=== PATIENT | female | born 1980 | race Caucasian/White ===

== ENCOUNTER 2021-10-26 16:48 | Emergency (ER) | payer OTHER ==
[~2021-10-26] VITALS: Ht 175.3 cm; Wt 89.1 kg
[2021-10-26] MEDS ORDERED: AMOX-580 PO (18:38)
[2021-10-26] MEDS ORDERED: HYDR-3972 PO (18:38)
[2021-10-26 19:13] VITALS: BP 117/81
== END 2021-10-26 19:16 | disposition home or self-care (01) ==
LOC: ER 16:48
DX: K08.89 Other specified disorders of teeth and supporting structures (principal); H92.02 Otalgia, left ear; Z79.2 Long term (current) use of antibiotics; Z79.899 Other long term (current) drug therapy
CPT/HCPCS: 99283

== ENCOUNTER 2022-03-10 04:41 | Emergency (ER) | payer OTHER ==
[~2022-03-10] VITALS: Ht 175.3 cm; Wt 81.8 kg
[2022-03-10 04:45] VITALS: BP 137/79
[2022-03-10] MEDS ORDERED: AMOX-117 PO (06:24)
[2022-03-10] MEDS ORDERED: HYDR-3965 PO (06:24)
[2022-03-10] MEDS ORDERED: HYDROcodone/acetaminophen 5mg/325mg tablet PO ONE (06:25)
== END 2022-03-10 06:35 | disposition home or self-care (01) ==
LOC: ER 04:41
DX: K08.89 Other specified disorders of teeth and supporting structures (principal); R51.9 Headache, unspecified
CPT/HCPCS: 99283

== ENCOUNTER 2023-02-01 16:53 | Emergency (ER) | payer OTHER ==
[~2023-02-01] VITALS: Ht 175.3 cm; Wt 102.8 kg
[2023-02-01 17:00] VITALS: BP 127/80
[2023-02-01] MEDS ORDERED: HYDR-3972 PO (17:57)
[2023-02-01] MEDS ORDERED: AMOX500C2 PO (17:57)
== END 2023-02-01 18:04 | disposition home or self-care (01) ==
LOC: ER 16:54
DX: K04.7 Periapical abscess without sinus (principal); R60.9 Edema, unspecified
CPT/HCPCS: 99283

== ENCOUNTER 2024-10-29 16:48 | Emergency (ER) | payer OTHER ==
[~2024-10-29] VITALS: Ht 177.8 cm; Wt 84.0 kg
[2024-10-29 16:56] VITALS: BP 123/64; PULSE 87; TEMP 99.2; O2SAT 98
[2024-10-29] MEDS ORDERED: AMOX-117 PO (18:08)
[2024-10-29 18:14] VITALS: RESP 18
[2024-10-29] MEDS: ketorolac trometh 15mg/ml vial 15 MG/ML ML IM ONE (18:14)
[2024-10-29] MEDS: amox tr/potassium clavulanate 875/125mg TAB PO ONE (18:14)
== END 2024-10-29 18:31 | disposition home or self-care (01) ==
LOC: ER 16:48
DX: K08.89 Other specified disorders of teeth and supporting structures (principal)
CPT/HCPCS: 96372; 99283; J1885

== ENCOUNTER 2025-02-22 20:43 | Emergency (ER) | payer OTHER ==
[~2025-02-22] VITALS: Ht 175.3 cm; Wt 83.0 kg
[2025-02-22 21:05] LABS: MEAN PLATELET VOLUME 8.4 FL (7.4-10.4); RED CELL DISTRIBUTION WIDTH 13.0 % (11.5-14.5)
[2025-02-22 21:25] LABS: CREATININE 1.03 MG/DL (0.40-0.90); PRO BRAIN NATRIURETIC PEPTIDE 92 PG/ML (0-125); TOTAL CARBON DIOXIDE 28.8 MMOL/L (24-32); eCRCL 72 ML/MIN; eGFR 58 ML/MIN
--- NOTE | 2025-02-22 22:23 | Physician Documentation ---
History of Present Illness ~ Chief Complaint: Chest Pain Stated Complaint: CHEST WALL PAIN Time Seen by MD: 22:10 Primary Medical Doctor: Dr. Persaud Mode of Arrival: Dropped Off [facility] Patient presents to the emergency room for evaluation of left-sided chest pain. Pain is exacerbated with palpation and movement. She is concerned that this represents cardiac ischemia. She did see her doctor regarding her symptoms who prescribed a muscle relaxer however she has yet to pick it up. She states she has taken ibuprofen for pain. Last time yesterday. Medication Reconciliation Allergies: Coded Allergies: No Known Allergies (Unverified , 02/09/11) Past Medical History Past Medical History: No Pertinent History Past Surgical History: no surgical history Alcohol Use: None Drug Use: none Lives with: Family Lives In: Home Review of Systems ROS All review of systems negative except as per [facility] Physical Exam Vital Signs: Temperature: 98.0, Source: Temporal, Heart Rate: 73, Respiratory Rate: 15, BP: 103/73, Pulse Oximetry: 99, Weight: 83.000 Oxygen Flow Rate: 0 Physical Exam General: Patient is awake, alert, oriented x4 in no acute distress and well appearing.~ Head: Normocephalic and atraumatic. Eyes: Conjunctival normal. EOMI. PERRL. ENT: Mucous membranes moist. Neck: Supple, trachea is midline. Chest: Clear to auscultation bilaterally without rales, rhonchi, or wheezes. There is no accessory muscle use or retractions. Tenderness to palpation to left chest wall Cardiac: RRR without murmurs, gallops, or rubs. Progress Results/Orders Results/Orders Orders - FRANK DECKER MD Chest,Single View (02/22/25 21:15) Monitor (02/22/25 20:44) Saline Lock (02/22/25 20:44) Oxygen (02/22/25 20:44) Electrocardiogram (02/22/25 20:44) Hs Troponin I W Calculations (02/22/25 22:44) Hs Troponin I W Calculations (02/22/25 23:44) Completed Orders - FRANK DECKER MD Chest,Single View (02/22/25 21:15) Cbc/Diff (02/22/25 20:44) BMP (02/22/25 20:44) PBNP (02/22/25 20:44) Hs Troponin I W Calculations (02/22/25 20:44) Vital Signs 02/22/25 02/22/25 02/22/25 20:48 21:57 22:04 Temp 98.0 Pulse 95 73 Resp 16 13 15 B/P (MAP) 112/70 103/73 (83) Pulse Ox 99 99 O2 Flow Rate 0 Laboratory Tests Test 02/22/25 20:52 White Blood Count 7.0 Red Blood Count 5.16 Hemoglobin 15.1 Hematocrit 43.4 Mean Corpuscular Volume 84.2 Mean Corpuscular Hemoglobin 29.2 Mean Corpuscular Hemoglobin Concent 34.6 Red Cell Distribution Width 13.0 Platelet Count 312 Mean Platelet Volume 8.4 Neutrophils (%) (Auto) 57.6 Lymphocytes (%) (Auto) 31.2 Monocytes (%) (Auto) 9.2 Eosinophils (%) (Auto) 1.1 Basophils (%) (Auto) 0.9 Neutrophils # (Auto) 4.0 Lymphocytes # (Auto) 2.2 Monocytes # (Auto) 0.6 Eosinophils # (Auto) 0.1 Basophils # (Auto) 0.1 CBC Comment Sodium Level 138 Potassium Level 4.2 Chloride Level 103 Carbon Dioxide Level 28.8 Anion Gap 6 L Blood Urea Nitrogen 16 Creatinine 1.03 H Estimated GFR/1.73 m2 58 BUN/Creatinine Ratio 15.5 Glucose Level 106 H Calcium Level 9.0 Troponin I High Sensitivity < 4 L Troponin I High Sens Percent Delta Troponin I Hi Sens Absolute Change Pro-B-Type Natriuretic Peptide 92 Albumin 4.0 Chemistry Comments EKG/XRAY/CT/US/VASC/MRI EKG : Additional Comment EKG interpreted by myself shows time of 2046, rate 88, sinus rhythm, normal axis, no ST changes Chest X-Ray : Additional Comments One view chest x-ray interpreted by myself shows no effusions no infiltrates and normal cardiac silhouette Medical Decision Making Findings Patient presents to the emergency room with left-sided chest pain as per HPI. Differentials include but are not limited to ACS, musculoskeletal pain, pulmonary embolism, pneumothorax. No calf tenderness to palpation given physical exam and history he had not feel patient requires investigation into pulmonary embolism or acute aortic pathology. Symptoms likely musculoskeletal. Departure Disposition: HOME / SELF CARE / HOMELESS Impression: Primary Impression: Chest wall pain Condition: Stable Discharge Instructions: Chest Wall Pain Additional Instructions: Ibuprofen and Tylenol together for pain. Referrals: NO PRIMARY CARE PROVIDER (PCP) Education Educated: Patient Educated regarding: diagnosis, treatment, need for follow up Signature Scribe Signature: No scribe Attestation: The note accurately reflects work and decisions made by me.Frank Decker MD 02/22/25 22:23 FRANK DECKER MD Feb 22, 2025 22:23
[2025-02-22] MEDS: ketorolac trometh 15mg/ml vial 15 MG/ML ML IM ONE (22:38)
[2025-02-22 22:45] VITALS: BP 103/73; PULSE 79; RESP 18; TEMP 98; O2SAT 100
--- NOTE | 2025-02-22 23:45 | RADIOLOGY REPORT ---
EXAM: DI CHEST,SINGLE VIEW CLINICAL HISTORY: CP TECHNIQUE: Single PA view of the chest WID: COMPARISON: None FINDINGS: Lines and tubes: None Chest: The heart size and pulmonary vasculature is within normal limits. No pleural effusion, pneumothorax, or consolidation. The osseous structures are grossly intact. IMPRESSION: No acute cardiopulmonary abnormality.
--- NOTE | 2025-02-23 07:46 | ELECTROCARDIOGRAPH REPORT ---
[facility] Test Date: 2025-02-22 Test Time: 20:47:52 Pat Name: GENEVIEVE LAY Department: EMERGENCY ROOM Room: Gender: F Gas Tender: : 1980 Requested By: YONATHAN PERKINS Order Number: [id number] Reading MD: Dr. Isrrael Billings Measurements Intervals [place] Rate: 88 P: 76 [place]: 144 QRS: 67 QRSD: 82 T: 57 QT: 348 QTc: 421 Interpretive Statements Sinus rhythm Ventricular premature complex Right atrial enlargement Low voltage, precordial leads Electronically Signed On 02-23-2025 8:05:[address] Isrrael Billings Please click the below link to view image of tracing.
== END 2025-02-22 22:47 | disposition home or self-care (01) ==
LOC: ER 20:44
DX: R07.89 Other chest pain (principal)
CPT/HCPCS: 36415; 71045; 80048; 83880; 84484; 85025; 93005; 96372; 99285; J1885